=== PATIENT | female | born 2000 | race Caucasian/White ===

== ENCOUNTER 2022-11-15 17:36 | Emergency (ER) | payer OTHER ==
[~2022-11-15] VITALS: Ht 170.2 cm; Wt 81.7 kg
--- OUTSIDE RECORDS SUMMARY | 2022-11-15 17:39 | XMS ---
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 [place]. VISIT COUNT (12 MO.) 1 JIMMY Dominguez TOTAL 1 NOTE: Visits indicate total known visits. ED/UCC VISIT TRACKING (12 MO.) 11/15/2022 17:37 J[facility] TYPE: Emergency COMPLAINT: - DIFFICULTY BREATHING INPATIENT VISIT TRACKING (12 MO.) No inpatient visits to display in this time frame [email or web address]
[2022-11-15] MEDS ORDERED: ENSKYCE1 EACH PO (19:41)
== END 2022-11-15 20:20 | disposition home or self-care (01) ==
LOC: ED 17:36
DX: J10.1 Influenza due to other identified influenza virus with other respiratory manifestations (principal); Z20.822 Contact with and (suspected) exposure to COVID-19
CPT/HCPCS: 87502; 99283-25; U0003

== ENCOUNTER 2025-02-14 13:57 | Emergency (ER) | payer OTHER ==
[~2025-02-14] VITALS: Ht 170.2 cm; Wt 107.3 kg
[~2025-02-14 13:57] MED LIST: ENSKYCE1 EACH PO; MELOXICAM15 MG PO; PROMETHAZINE12.5 M1 PO
[2025-02-14 18:19] LABS: BASOPHILS 0.6 % (0-2); EOSINOPHILS 0.8 % (0-6); HEMATOCRIT 39.9 % (35.0-50.0); HEMOGLOBIN 13.8 g/dL (12.0-18.0); LYMPHOCYTES 24.6 % (24-44); MCH 29.1 (27-36); MCHC 34.5 g/dl (30-36); MCV 84.4 fl (81-99); PLATELET COUNT 338 K/uL (140-440); RBC 4.73 M/ul (4.3-5.7); RDW 13.9 (10.5-15.0)
[2025-02-14 18:34] LABS: ALBUMIN 4.3 g/dL (3.4-5.0); ALBUMIN/GLOBULIN RATIO 1.34 (1.1-2.4); ANION GAP 15.4 (7-21); BILIRUBIN, TOTAL 0.4 mg/dL (0.2-1.0); BUN/CREATININE RATIO 10.71 (6.0-28.6); CALCIUM 8.8 mg/dL (8.5-10.1); CREATININE, SERUM 0.56 mg/dL (0.55-1.02); POTASSIUM 3.4 mmol/L (3.5-5.1); PROTEIN, TOTAL 7.5 g/dL (6.4-8.2)
[2025-02-14 19:39] LABS: BILIRUBIN, URINE NEGATIVE (negative); BLOOD/HGB, URINE NEGATIVE (Negative); KETONE, URINE SMALL (Negative); LEUK ESTERASE, URINE NEGATIVE (negative); NITRITE, URINE NEGATIVE (negative); PH, URINE 7.5 (5-7)
[2025-02-14 21:20] VITALS: BP 126/62
== END 2025-02-14 21:20 | disposition home or self-care (01) ==
LOC: ED 13:57
PROVIDERS: Emergency Medicine
DX: O99.891 Other specified diseases and conditions complicating pregnancy (principal); R10.11 Right upper quadrant pain; R06.02 Shortness of breath; Z3A.01 Less than 8 weeks gestation of pregnancy
CPT/HCPCS: 36415; 76801; 76817; 80053; 81003; 83690; 83735; 84702; 85025; 85379; 99285-25